=== PATIENT | female | born 1995 | race Caucasian/White ===

== ENCOUNTER 2018-12-03 22:38 | Emergency (ER) | payer BC ==
[~2018-12-03] VITALS: Ht 162.6 cm; Wt 68.0 kg
--- NOTE | 2018-12-03 23:25 | NUR ---
BIBSELF WITH FAMILY. PT IS ALERT AND ORIENTED X4. PT IS COMPLAINING OF LIGHT HEADEAD, COUGHING, FEVER AND VOMIT EARLIER. PT STATED PT TOOK DAYQUIL 4 HOURS AGO. VS IS STABLE. PT STATES PT'S LAST MESTRUATION IS TODAY. CHEST XRAY IS DONE. PT SIGNED WAIVER. AT THE BEDSIDE FOR EVAL. ORDER RECEIVED.
[2018-12-04 00:48] VITALS: BP 112/72
--- NOTE | 2018-12-04 00:50 | NUR ---
Patient discharged to home in stable condition. Written and verbal after care instructions given. Patient verbalizes understanding of instruction. Pt ambulatory with a steady gait
== END 2018-12-04 00:53 | disposition home or self-care (01) ==
LOC: ER 22:41
DX: J06.9 Acute upper respiratory infection, unspecified (principal); F17.200 Nicotine dependence, unspecified, uncomplicated
CPT/HCPCS: 71045-TC